=== PATIENT | male | born 1980 | race Caucasian/White ===

== ENCOUNTER → 2019-08-21 15:34 | Outpatient (BNVA) | payer OTHER, SELFPAY | PROVIDERS: Visit Provider Family Medicine | DX: Z86.39 Personal history of other endocrine, nutritional and metabolic disease (principal); M25.531 Pain in right wrist; M25.532 Pain in left wrist; F17.219 Nicotine dependence, cigarettes, with unspecified nicotine-induced disorders | CPT/HCPCS: 80053; 84439; 84443; 85025 ==